=== PATIENT | female | born 1950 | race Caucasian/White ===

== ENCOUNTER 2023-07-21 06:10 | Inpatient (IN) | payer MEDICARE, OTHER ==
[~2023-07-21] VITALS: Ht 154.9 cm; Wt 46.0 kg
[~2023-07-21 06:10] MED LIST: ASPIRIN 81M81 MG/TA2 PO; BETAPACE 80MG80 MG PO; CEFTIN500 MG PO; CHERATUSSIN AC120 ML PO; COMBIRESP IH; COUMADIN 5MG5 MG/TAB PO; DESYREL 100MG100 MG PO; DOXYCYCLINE 10100 MG PO; DOXYCYCLINE HY100 MG PO; FLOVENT DI250 MCG/Ac IH; IPRATROPIUM BROM3 M1 IH; LASIX 20MG TABL20 MG PO; NEXIUM 20MG20 MG PO; NORVASC 10MG10 MG PO; PAXIL 20MG20 MG PO; PRAVACHOL 20MG20 MG PO; PREDNISONE20 MG PO; PREDNISONE50 MG PO; SINGULAIR 110 MG/TAB PO; TENORMIN 2525 MG/TAB PO
[2023-08-02] VITALS (8 sets, daily range): BP systolic 111–159; BP diastolic 52–81; PULSE 69–86; TEMP 97.6–99.1
[2023-08-02] MEDS ORDERED: XARELTO15 MG PO (09:03)
[2023-08-02 09:43] LABS: BASO # 0.1 K/mm3 (0.0-0.2); BASO % 1.5 % (0.0-2.0); EOS # 0.6 K/mm3 (0.0-0.7); EOS % 6.9 % (0.0-4.0); GRAN # 5.4 K/mm3 (1.4-6.5); GRAN % 60.4 % (42.2-75.2); HEMATOCRIT 43.2 % (37.0-47.0); HEMOGLOBIN 14.8 g/dl (12.5-16.0); LYMPH # 1.8 K/mm3 (1.2-3.4); LYMPH % 20.6 % (20.0-51.0); MEAN CELL VOLUME 94 fl (80.0-100.0); MEAN CORPUSCULAR HEMOGLOBIN 32 pg (27-31); MEAN CORPUSCULAR HGB CONC 34 g/dl (33.0-37.0); MEAN PLATELET VOLUME 9.9 fl (7.4-10.4); MONO # 0.9 K/mm3 (0.1-0.6); MONO % 10.3 % (1.7-9.3); PLATELET COUNT 251 K/mm3 (130-400); REDCELL DISTRIBUTION WIDTH-CV 14.7 % (11.5-14.5)
[2023-08-02 10:00] LABS: ALBUMIN 3.9 gm/dL (3.4-4.8); BILIRUBIN,TOTAL 0.5 mg/dL (0.2-1.2); CALCIUM 9.9 mg/dL (8.4-10.2); CREATININE, serum 1.28 mg/dL (0.57-1.11); MAGNESIUM 1.9 mg/dL (1.6-2.6); POTASSIUM 4.4 mmol/L (3.5-4.5); TOTAL PROTEIN 7.4 gm/dL (6.2-8.1)
[2023-08-02 10:01] LABS: INR 2.1 (0.8-3.0); PROTHROMBIN TIME 22.7 SECONDS (9.7-12.8)
[2023-08-02] MEDS ORDERED: Esomeprazole 20 MG **** subs to Pantoprazole 20 MG PO SCH (10:12)
--- NOTE | 2023-08-02 10:14 | NUR ---
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 wished her well and is available to her if needed.
[2023-08-02] MEDS ORDERED: Ondansetron 4 MG/2 ML VIAL IV PRN (10:15)
[2023-08-02] MEDS ORDERED: Amiodarone 200 MG TAB PO SCH (10:15)
[2023-08-02] MEDS ORDERED: Magnes Hydrox (MOM) 80 MG/ML 30 ML CUP PO PRN (10:15)
[2023-08-02] MEDS ORDERED: Bisacodyl 5 MG TAB PO PRN (10:15)
[2023-08-02] MEDS ORDERED: Rivaroxaban 15 MG TAB PO SCH (10:32)
[2023-08-02] MEDS ORDERED: PARoxetine HCL 10 MG TABLET PO SCH (11:38)
--- NOTE | 2023-08-02 11:47 | NUR ---
PT provided copy of her health care proxy, stating Shanice Youssef as her proxy who can be reached at [phone]. Copy placed in patient chart.
[2023-08-02] MEDS ORDERED: Albuterol/Ipratop Respimat **** subs to Albuterol/Ipratrop Nebule IH SCH (13:00)
[2023-08-02] MEDS ORDERED: Albuterol/Ipratropium 3 MG-0.5 MG/3 ML Neb Soln IH SCH (15:00)
[2023-08-02] MEDS ORDERED: Furosemide 20 MG TAB PO SCH (16:00)
--- NOTE | 2023-08-02 18:26 | NUR ---
Pt has had a calm day, tolerating medication. VSS but HTN. Report will be given to night RN.
[2023-08-02] MEDS ORDERED: Budesonide Neb Susp 0.5 MG/2 ML AMP IH SCH (19:00)
[2023-08-02] MEDS ORDERED: [UNRECOGNIZED DRUG - REMARK] IH SCH (19:00)
--- NOTE | 2023-08-02 19:11 | NUR ---
report received from britney henriquez. pt sitting in bed and playing video games on her ipad. pt denies pain at this time. call light in reach. all needs met at this time.
--- NOTE | 2023-08-02 20:39 | NUR ---
shift assessment complete, see documentation. pt denies pain. pt tolerated hs meds well. pt a&o x4. pt resting in bed watching tv. call light in reach. all needs met at this time.
[2023-08-02] MEDS ORDERED: traZODone 100 MG TAB PO SCH (21:00)
[2023-08-02] MEDS ORDERED: Melatonin 3 MG TAB PO PRN (21:00)
[2023-08-02] MEDS ORDERED: Pravastatin 20 MG TAB PO SCH (21:00)
[2023-08-03] VITALS (12 sets, daily range): BP systolic 101–153; BP diastolic 52–68; PULSE 61–75; TEMP 97.5–98.3
--- NOTE | 2023-08-03 03:47 | NUR ---
pt resting well tonight. equal and unlabored breaths noted. pt has no outward signs of pain. call light in reach. all needs met at this time.
[2023-08-03] MEDS ORDERED: Esomeprazole 20 MG **** subs to Pantoprazole 20 MG PO SCH (07:00)
[2023-08-03 07:07] LABS: BASO # 0.1 K/mm3 (0.0-0.2); BASO % 1.2 % (0.0-2.0); EOS # 0.4 K/mm3 (0.0-0.7); EOS % 7.7 % (0.0-4.0); GRAN # 2.7 K/mm3 (1.4-6.5); GRAN % 47.1 % (42.2-75.2); HEMATOCRIT 39.4 % (37.0-47.0); HEMOGLOBIN 13.2 g/dl (12.5-16.0); LYMPH # 1.9 K/mm3 (1.2-3.4); LYMPH % 32.3 % (20.0-51.0); MEAN CELL VOLUME 94 fl (80.0-100.0); MEAN CORPUSCULAR HEMOGLOBIN 32 pg (27-31); MEAN CORPUSCULAR HGB CONC 34 g/dl (33.0-37.0); MEAN PLATELET VOLUME 10.6 fl (7.4-10.4); MONO # 0.7 K/mm3 (0.1-0.6); MONO % 11.5 % (1.7-9.3); PLATELET COUNT 178 K/mm3 (130-400); RED BLOOD COUNT 4.19 M/mm3 (4.10-5.30); REDCELL DISTRIBUTION WIDTH-CV 14.7 % (11.5-14.5)
[2023-08-03 07:22] LABS: CALCIUM 8.7 mg/dL (8.4-10.2); CREATININE, serum 1.16 mg/dL (0.57-1.11); MAGNESIUM 1.9 mg/dL (1.6-2.6); POTASSIUM 3.3 mmol/L (3.5-4.5)
--- NOTE | 2023-08-03 08:02 | NUR ---
pt a&ox3 resting in bed. meds given and assessment complete. pt denies pain. pt scheduled for PFT today, instructed pt to avoid caffeine but may have breakfast. vss and tele in place. pt denies needs at this time. call light in reach.
--- NOTE | 2023-08-03 09:00 | NUR ---
pt off floor for pulmonary function test
[2023-08-03] MEDS ORDERED: Albuterol 0.083% Neb Soln 2.5 MG/3 ML UD IH ONE (09:26)
--- NOTE | 2023-08-03 09:55 | NUR ---
pt back in room from study. no needs at this time.
--- NOTE | 2023-08-03 15:41 | NUR ---
mud car worker and Student Yoselin met with pt to complete discharge planning. Pt is currently staying with her daughter, Shanice [phone]. Her home of residence is [place], [place]. She sees Dr. Hood and obtains medications from [facility] with no difficulties. She is independent with ADLS and uses no DME. She has access to a FWW at home. She reports a copy of her DPOA-HC is in her chart. TERRENCE verified this, listing her three daughters, Shanice, Tania, and Stella. Pt intends to return back to her dtr's at discharge. SW verified DPOA-HC in chart. PT/OT not ordered, SW viewed her ambulating on her own. Discharge Plan: Home to daughter's
--- NOTE | 2023-08-03 23:12 | NUR ---
patient lying in bed, alert and oriented x4. pt denies chest pain and shortness of breath. IV in RF is patent, site is clean dry and intact. generalized bruising on extremities, no additional remarkable sking findings noted. pt has no further needs, questions, or concerns at this time. pt ambulating with steady gait in room. call light within reach, will continue to monitor.
[2023-08-04] VITALS (12 sets, daily range): BP systolic 111–139; BP diastolic 54–72; PULSE 68–77; TEMP 97.4–98.2
[2023-08-04 06:40] LABS: BASO # 0.1 K/mm3 (0.0-0.2); BASO % 1.2 % (0.0-2.0); EOS # 0.5 K/mm3 (0.0-0.7); GRAN # 2.9 K/mm3 (1.4-6.5); GRAN % 51.6 % (42.2-75.2); HEMOGLOBIN 12.2 g/dl (12.5-16.0); LYMPH # 1.5 K/mm3 (1.2-3.4); LYMPH % 25.6 % (20.0-51.0); MEAN CELL VOLUME 92 fl (80.0-100.0); MEAN CORPUSCULAR HEMOGLOBIN 32 pg (27-31); MEAN CORPUSCULAR HGB CONC 35 g/dl (33.0-37.0); MEAN PLATELET VOLUME 10.1 fl (7.4-10.4); MONO # 0.7 K/mm3 (0.1-0.6); MONO % 12.2 % (1.7-9.3); PLATELET COUNT 171 K/mm3 (130-400); RED BLOOD COUNT 3.78 M/mm3 (4.10-5.30); REDCELL DISTRIBUTION WIDTH-CV 14.5 % (11.5-14.5)
[2023-08-04 06:42] LABS: HEMATOCRIT 34.9 % (37.0-47.0)
[2023-08-04 06:49] LABS: INR 2.9 (0.8-3.0)
[2023-08-04 07:02] LABS: CALCIUM 8.4 mg/dL (8.4-10.2); CREATININE, serum 1.11 mg/dL (0.57-1.11); MAGNESIUM 1.9 mg/dL (1.6-2.6)
--- NOTE | 2023-08-04 09:35 | NUR ---
PATIENT ASSESSMENT COMPLETE. VSS DOES NOT COMPLAIN OF PAIN PATIENT POTASSIUM WAS 3.0. NOTIFIED PROVIDER. WILL START ON A POTASSIUM PROTOCAL. PATIENT IS PLEASANT AND EATING BREAKFAST. BED RAILS X3 UP. CALL LIGHT WITHIN REACH.
[2023-08-04] MEDS ORDERED: *Potassium Replacement Protocol MC SCH ×2 (10:15→10:45)
[2023-08-04] MEDS ORDERED: Potassium Bicarbonate/Citrate 20 MEQ Effervescent TAB PO SCH (10:45)
[2023-08-04] MEDS ORDERED: TRIAM OI 0.1 454 TOP (13:49)
[2023-08-04] MEDS ORDERED: XARELTO STARTER20 MG PO (13:50)
--- NOTE | 2023-08-04 22:51 | NUR ---
patient lying in bed, alert and oriented x4. pt denies chest pain and shortness of breath. IV in RF is patent, site is clean dry and intact, tonya wrap covering IV per pt request. ambulating in room with steady gait. small scattered bruising on extremities, no additional remarkable skin findings. pt has no further needs, questions, or concerns at this time. call light within reach. will continue to monitor.
[2023-08-05] VITALS (12 sets, daily range): BP systolic 119–156; BP diastolic 64–79; PULSE 71–81; TEMP 97.6–98.1
[2023-08-05 06:31] LABS: BASO # 0.1 K/mm3 (0.0-0.2); BASO % 1.2 % (0.0-2.0); EOS # 0.5 K/mm3 (0.0-0.7); EOS % 8.7 % (0.0-4.0); GRAN # 2.6 K/mm3 (1.4-6.5); GRAN % 47.1 % (42.2-75.2); HEMOGLOBIN 11.5 g/dl (12.5-16.0); INR 3.6 (0.8-3.0); LYMPH # 1.6 K/mm3 (1.2-3.4); LYMPH % 28.5 % (20.0-51.0); MEAN CELL VOLUME 96 fl (80.0-100.0); MEAN CORPUSCULAR HEMOGLOBIN 32 pg (27-31); MEAN CORPUSCULAR HGB CONC 33 g/dl (33.0-37.0); MEAN PLATELET VOLUME 10.3 fl (7.4-10.4); MONO # 0.8 K/mm3 (0.1-0.6); MONO % 14.1 % (1.7-9.3); PLATELET COUNT 178 K/mm3 (130-400); PROTHROMBIN TIME 37.7 SECONDS (9.7-12.8); RED BLOOD COUNT 3.65 M/mm3 (4.10-5.30); REDCELL DISTRIBUTION WIDTH-CV 14.7 % (11.5-14.5)
[2023-08-05 06:43] LABS: HEMATOCRIT 34.9 % (37.0-47.0)
[2023-08-05 06:44] LABS: CALCIUM 8.6 mg/dL (8.4-10.2); CREATININE, serum 1.19 mg/dL (0.57-1.11); MAGNESIUM 1.9 mg/dL (1.6-2.6); POTASSIUM 3.9 mmol/L (3.5-4.5)
--- NOTE | 2023-08-05 07:16 | NUR ---
NURSE CALLED PHARMACY FOR POTASSIUM PROTOCOL ADJUSTMENT. PATIENTS POTASSIUM LAB WAS 3.9, AND CAN TAKE PILLS BY MOUTH, BUT DOES NOT LIKE TAKING THE EFFERVESCENT DISSOLVING TABLET IN JUICE OR CARBONATED BEVERAGE DUE TO GERD. PHARMACIST ORDERING 1X DOSE OF ORAL 20MEQ PILL. PATIENT WAS SATIFIED TAKING THE MEDICATION THIS WAY YESTERDAY.
--- NOTE | 2023-08-05 08:58 | NUR ---
PATIENT ASSESSMENT COMPLETE. PATIENT IS PLEASANT, AXOX4, DOES NOT COMPLAIN OF ANY PAIN. VSS. CALL LIGHT AND PERSONAL ITEMS WITHIN REACH. X3 BED RAILS UP.
[2023-08-06 00:05] VITALS: BP_SYST 155
--- NOTE | 2023-08-06 00:08 | NUR ---
patient lying in bed, alert and oriented x4. pt denies chest pain and shortness of breath. IV in RF is patent, site clean dry and intact. no skin abnormalities noted. pt has no further needs, questions, or concerns at this time. pt ambulating with steady gait. call light within reach. will continue to monitor.
[2023-08-06 03:31] VITALS: BP 121/67; PULSE 74; TEMP 98.4
[2023-08-06 04:48] VITALS: BP_SYST 121
[2023-08-06 06:45] LABS: BASO # 0.1 K/mm3 (0.0-0.2); BASO % 1.3 % (0.0-2.0); EOS # 0.4 K/mm3 (0.0-0.7); EOS % 7.4 % (0.0-4.0); GRAN # 2.9 K/mm3 (1.4-6.5); GRAN % 52.9 % (42.2-75.2); HEMOGLOBIN 12.1 g/dl (12.5-16.0); LYMPH # 1.5 K/mm3 (1.2-3.4); LYMPH % 26.4 % (20.0-51.0); MEAN CELL VOLUME 93 fl (80.0-100.0); MEAN CORPUSCULAR HEMOGLOBIN 31 pg (27-31); MEAN CORPUSCULAR HGB CONC 34 g/dl (33.0-37.0); MEAN PLATELET VOLUME 10.1 fl (7.4-10.4); MONO # 0.6 K/mm3 (0.1-0.6); MONO % 11.6 % (1.7-9.3); PLATELET COUNT 182 K/mm3 (130-400); RED BLOOD COUNT 3.87 M/mm3 (4.10-5.30); REDCELL DISTRIBUTION WIDTH-CV 14.6 % (11.5-14.5)
[2023-08-06 06:55] LABS: INR 2.5 (0.8-3.0); PROTHROMBIN TIME 26.7 SECONDS (9.7-12.8)
[2023-08-06 07:07] LABS: CALCIUM 9.3 mg/dL (8.4-10.2); CREATININE, serum 1.3 mg/dL (0.57-1.11); MAGNESIUM 1.9 mg/dL (1.6-2.6); POTASSIUM 3.8 mmol/L (3.5-4.5)
[2023-08-06 07:37] VITALS: BP 136/69; PULSE 73; TEMP 97.3
[2023-08-06 08:35] VITALS: BP_SYST 136
[2023-08-06] MEDS ORDERED: XARELTO20 MG PO (09:47)
[2023-08-06] MEDS ORDERED: PACERONE200 MG PO (09:48)
[2023-08-06] MEDS ORDERED: KLOR-CON M2020 MEQ PO (09:50)
--- NOTE | 2023-08-06 12:00 | NUR ---
PATIENT RECEIVED DISCHARGE PAPERWORK. RW IV DISCONTINUED. PATIENT ACKNOWLEDGES UNDERSTANDING. DISCHARGED WITH DAUGHTER. NO ISSUES.
== END 2023-08-06 12:00 | disposition home or self-care (01) | DRG 310 ==
LOC: MEDICAL 08-02 06:10
PROVIDERS: ADMIT Internal Medicine Cardiovascular Disease
DX: I48.91 Unspecified atrial fibrillation (principal); Z87.891 Personal history of nicotine dependence